=== PATIENT | male | born 1990 | race Caucasian/White ===

== ENCOUNTER → 2017-04-20 | Outpatient (CLI) | payer OTHER ==
--- NOTE | 2017-04-21 11:31 | EKG ---
FACILITY: [facility] PATIENT NAME: CORBIN OBREGON : [id number] MR: [id number]: [id number] EXAM DATE: ORDERING PHYSICIAN: GLADYS VICENTE TECHNOLOGIST: SHAMEKA Test Reason : CHEST PAIN Blood Pressure : / mmHG Vent. Rate : 069 BPM Atrial Rate : 069 BPM P-R Int : 158 ms QRS Dur : 104 ms QT Int : 404 ms P-R-T Axes : 063 098 063 degrees QTc Int : 432 ms Normal sinus rhythm with sinus arrhythmia Normal ECG No previous ECGs available Referred By: JULES Confirmed By:
== END ==
LOC: RESP 15:32
PROVIDERS: ATTEND Internal Medicine
DX: Z02.9 Encounter for administrative examinations, unspecified (principal)